=== PATIENT | male | born 1960 | race Caucasian/White ===

== ENCOUNTER 2017-02-27 16:54 | Emergency (ER) | payer OTHER ==
[~2017-02-27] VITALS: Ht 170.2 cm; Wt 87.0 kg
[2017-02-27 16:58] VITALS: TEMP 36.6; Ht 170.2 cm; Wt 87.0 kg
[2017-02-27] MEDS ORDERED: MoRPHine SULFATE 10 MG/ML CARP/VIAL IV STA ×2 (17:43→20:37)
--- NOTE | 2017-02-27 18:40 | DIAGNOSTIC IMAGING REPORT ---
LEFT TIBIA/FIBULA 2 VIEWS ROUTINE CLINICAL HISTORY: pain/swelling, crush injury, eval fx trauma. Pain. COMPARISON: None. DISCUSSION: Transverse fracture medial malleolus of the left ankle. Chronic cortical thickening of the mid tibial shaft. Possible small avulsion anterior tibial margin of the ankle. There is no evidence for soft tissue swelling. IMPRESSION: Fracture medial malleolus left ankle. Potential fracture anterior margin of the tibia at the anterior margin of the ankle. No additional acute bony abnormality of the lower leg. The above report was generated using voice recognition software. It may contain grammatical, syntax or spelling errors. Electronically signed by: Theodore Singleton M.D. 02/27/2017 6:39 PM Dictated Date/Time: 02/27/2017 6:35 PM
--- NOTE | 2017-02-27 18:44 | DIAGNOSTIC IMAGING REPORT ---
LEFT ANKLE MIN 3 VIEWS ROUTINE, LEFT FOOT MIN 3 VIEWS ROUTINE HISTORY: 56 years-old Male pain/swelling, crush injury, eval fx COMPARISON: None available TECHNIQUE: 3 views of the left foot and 3 views of the left ankle FINDINGS: Ankle: There is an acute complete fracture of the anterior aspect medial malleolus below the level of the talar dome which demonstrates approximately 3 mm of medial displacement and 3 mm of distal displacement. Moderate circumferential soft tissue swelling is present about the ankle with moderate joint effusion. There is also a suspected fracture involving the anterior calcaneus adjacent to the calcaneal cuboid articulation, best seen on the lateral projection. Peripheral vascular calcifications are noted. Foot: Moderate degenerative changes are seen within the first interphalangeal joint. Peripheral vascular calcifications are noted. There is a suspected fracture of the anterior calcaneus adjacent to the calcaneal cuboid articulation. Additionally, there is a bone fragment of the dorsal forefoot adjacent to the second tarsometatarsal joint with soft tissue swelling suggesting fracture. IMPRESSION: 1. Acute mildly displaced fracture of the medial malleolus with associated soft tissue swelling and moderate joint effusion. 2. Additional intra-articular fracture of the anterior calcaneus adjacent to the calcaneal cuboid articulation. 3. Bone fragment of the dorsal forefoot adjacent to the second tarsometatarsal joint seen only on the lateral view suggests an additional fracture with soft tissue swelling. 4. Peripheral vascular disease. The above report was generated using voice recognition software. It may contain grammatical, syntax or spelling errors. Electronically signed by: Gregory Nguyen M.D. 02/27/2017 6:43 PM Dictated Date/Time: 02/27/2017 6:38 PM
--- NOTE | 2017-02-27 20:03 | EMERGENCY ROOM VISIT NOTE ---
ED Visit Note First contact with patient: 17:02 CHIEF COMPLAINT: Ankle pain HISTORY OF PRESENT ILLNESS: This 56-year-old male patient presents to the emergency department after sustaining an injury to the left ankle and foot around 3 PM. Patient states he was cutting a tree and the trunk fell hitting him on the lateral leg and foot. There was no twisting or inversion motion. The patient complains of pain along the outside of the ankle. The patient complains of pain of the foot. The patient rates the pain as throbbing and 9/ 10. The patient is not able to bear weight on the foot. Constant pain, worse with movement, weight bearing, and the dependent position. No knee pain, the patient is able to move their toes. No numbness or weakness of the foot, no laceration, but abrasions to the lateral foot and ankle. The patient has not had a previous fracture to this ankle. The patient has taken no medications for the pain. The patient denies any other injury. Tetanus is up-to-date. REVIEW OF SYSTEMS: A 6 system review of systems was completed with positives and pertinent negatives listed in the HPI. ALLERGIES: See chart MEDICATIONS: See chart PMH: See chart SOCIAL HISTORY: See chart PHYSICAL EXAM: Vital Signs: Reviewed Nurse's notes, vital signs stable. GENERAL : Pleasant cooperative, no acute distress, but appears in pain, well-developed, well-nourished. MENTAL STATUS: Alert, oriented to person place and time, and cooperative. MUSCULOSKELETAL: The left ankle and foot are significantly swollen swollen and tender over the lateral malleolus, mild abrasions and ecchymosis along the lateral aspect, but no lacerations or punctures. There is lateral and medial ligamentous instability. There is fifth metatarsal tenderness. There is swelling and tenderness over the entire dorsum of the foot. There is no calf or tibia/fibular tenderness. There is no visual deformity. The foot and toes are warm and well-perfused. Dorsalis pedis pulse 2+. Sensation to pain and light touch is intact. Capillary refill less than 2 seconds. IMAGING: LEFT LOWER EXTREMITY WITHOUT HISTORY: 56 years-old Male further eval fxs of med mall, calcaneus, and foot. Acute left foot and ankle pain status post trauma. COMPARISON: Left foot and ankle radiograph the same day TECHNIQUE: Multiple axial CT images of the left lower extremity were obtained without the use of IV contrast. Coronal and sagittal reformatted images were obtained from the axial data set and submitted for review. A dose lowering technique was used consistent with the principals of NEHEMIAS. FINDINGS: Previously discussed osseous structure of the dorsal forefoot correlates with a 1.2 cm os intermetatarseum positioned between the first and second metatarsal bases. No forefoot fracture is identified. Midfoot alignment is anatomic. There is a small acute appearing comminuted intra-articular fracture of the inferior aspect of the anterior calcaneus adjacent to the plantar aspect of the cuboid. There is a subtle fracture of the dorsal aspect cuboid nicely seen on image 42 of the sagittal series as well as a subtle fracture of the dorsal third cuneiform. Moderate degenerative changes involving the first interphalangeal joint. There is an acute mildly displaced fracture involving the medial malleolus which is angulated approximately 38 degrees with is apex medial. This is displaced medially approximately 5 mm. There is a 9 x 6 x 4 loose body present along the anterolateral aspect of the tibial plafond with adjacent osteochondral defect. There is moderate soft tissue swelling about the ankle. No vascular calcifications are noted. There is thickening of the peroneus longus tendon suggesting tendinosis. The imaged extensor tendons appear intact. IMPRESSION: 1. Acute mildly displaced and angulated fracture of the medial malleolus redemonstrated. 2. Subtle comminuted intra-articular fracture of the anterior calcaneus adjacent to the cuboid. 3. Additional subtle fractures involve the dorsal cuboid and dorsal third cuneiform. 4. Previously discussed osseous structure of the dorsal forefoot correlates with a 1.2 cm os intermetatarseum positioned between the first and second metatarsal bases. 5. Osteochondral defect of the anterolateral tibial plafond with 9 mm loose body. EMERGENCY DEPARTMENT COURSE: I examined the patient. Exam concerning for fracture of the ankle and possibly foot. IV was started and patient was given morphine for pain control. X-rays of the left foot, ankle, tibia/fibula were reviewed by myself and read by radiology and reveal acute medial malleolus fracture, intra-articular calcaneus fracture, and possible metatarsal fracture. Given the extent of the injury, CT of the lower extremity was also obtained for further information. Ortho-Glass splint posterior and stirrup was applied to the ankle under my direction and the position was satisfactory. Neurovascular status was rechecked and intact. The patient was instructed on the use of crutches. Patient was provided Ulysses for pain management. The patient was instructed to follow closely with orthopedic surgery for further management. The patient was discharged home in good condition. Current/Historical Medications Scheduled PRN Hydrocodone/Acetaminophen 5MG/325MG (Ulysses 5MG/325MG), 1-2 TABLET PO Q6H PRN for Pain Miscellaneous Medications None (Patient States No Home Meds) Allergies Coded Allergies: No Known Allergies (Unverified , 08/25/11) Vital Signs Date Time Temp Pulse Resp B/P (MAP) Pulse Ox O2 Delivery O2 Flow Rate FiO2 02/27/17 20:50 62 18 142/75 98 Room Air 02/27/17 18:50 67 18 134/72 98 Room Air 02/27/17 16:58 36.6 67 18 106/72 98 Room Air Medications Administered Medications (Trade) Dose Ordered Sig/Sebastien Route Start Time Stop Time Status Last Admin Dose Admin Morphine Sulfate (MoRPHine SULFATE INJ) 6 mg NOW STAT IV 02/27/17 17:43 02/27/17 17:46 DC 02/27/17 18:08 6 MG Morphine Sulfate (MoRPHine SULFATE INJ) 6 mg NOW STAT IV 02/27/17 20:37 02/27/17 20:38 DC 02/27/17 20:37 6 MG Acetaminophen/ Hydrocodone Bitart (Ulysses 5/325mg Home Pack) 1 homepack UD ONCE PO 02/27/17 21:15 02/27/17 21:16 DC 02/27/17 21:20 1 HOMEPACK Departure Information Impression Primary Impression: Fracture of medial malleolus, left, closed Additional Impression: Calcaneus fracture, left Dispostion Home / Self-Care Condition GOOD Prescriptions Hydrocodone/Acetaminophen 5MG/325MG (Ulysses 5MG/325MG) Tab 1-2 TABLET PO Q6H Y for Pain for 3 Days, #24 TAB For Initial Treatment Prov: Vikki Cobos CRNP 02/27/17 Referrals No Doctor, Assigned (PCP) Lazaro Perdomo D.O. Patient Instructions Calcaneus Fx Repair, ED Fx Ankle General, [facility] Additional Instructions Ice and elevation for the next 2 days. Use the crutches at all times to avoid any weight bearing on your left leg. The splint is not to be removed until you are seen in follow up. Do not get the splint wet. Ulysses 1-2 tabs every 6 hours as needed for pain. This is a narcotic medication, do not drive, drink alcohol, or operate machinery while you are taking it. Follow up with orthopedics in the next few days. Call Dr. Perdomo's office for an appointment. Work Instructions Return To Work: after follow-up (with orthopedics) Additional Work Instructions: No weight bearing on the left leg, must use crutches at all times Problem Qualifiers Primary Impression: Fracture of medial malleolus, left, closed Encounter type: initial encounter Fracture alignment: displaced Qualified Codes: S82.52XA - Displaced fracture of medial malleolus of left tibia, initial encounter for closed fracture Additional Impression: Calcaneus fracture, left Encounter type: initial encounter Fracture type: closed Fracture morphology : intra-articular Fracture alignment: nondisplaced Qualified Codes: S92.065A - Nondisplaced intraarticular fracture of left calcaneus, initial encounter for closed fracture
--- NOTE | 2017-02-27 20:14 | DIAGNOSTIC IMAGING REPORT ---
LEFT LOWER EXTREMITY WITHOUT HISTORY: 56 years-old Male further eval fxs of med mall, calcaneus, and foot. Acute left foot and ankle pain status post trauma. COMPARISON: Left foot and ankle radiograph the same day TECHNIQUE: Multiple axial CT images of the left lower extremity were obtained without the use of IV contrast. Coronal and sagittal reformatted images were obtained from the axial data set and submitted for review. A dose lowering technique was used consistent with the principals of NEHEMIAS. FINDINGS: Previously discussed osseous structure of the dorsal forefoot correlates with a 1.2 cm os intermetatarseum positioned between the first and second metatarsal bases. No forefoot fracture is identified. Midfoot alignment is anatomic. There is a small acute appearing comminuted intra-articular fracture of the inferior aspect of the anterior calcaneus adjacent to the plantar aspect of the cuboid. There is a subtle fracture of the dorsal aspect cuboid nicely seen on image 42 of the sagittal series as well as a subtle fracture of the dorsal third cuneiform. Moderate degenerative changes involving the first interphalangeal joint. There is an acute mildly displaced fracture involving the medial malleolus which is angulated approximately 38 degrees with is apex medial. This is displaced medially approximately 5 mm. There is a 9 x 6 x 4 loose body present along the anterolateral aspect of the tibial plafond with adjacent osteochondral defect. There is moderate soft tissue swelling about the ankle. No vascular calcifications are noted. There is thickening of the peroneus longus tendon suggesting tendinosis. The imaged extensor tendons appear intact. IMPRESSION: 1. Acute mildly displaced and angulated fracture of the medial malleolus redemonstrated. 2. Subtle comminuted intra-articular fracture of the anterior calcaneus adjacent to the cuboid. 3. Additional subtle fractures involve the dorsal cuboid and dorsal third cuneiform. 4. Previously discussed osseous structure of the dorsal forefoot correlates with a 1.2 cm os intermetatarseum positioned between the first and second metatarsal bases. 5. Osteochondral defect of the anterolateral tibial plafond with 9 mm loose body. The above report was generated using voice recognition software. It may contain grammatical, syntax or spelling errors. Electronically signed by: Gregory Nguyen M.D. 02/27/2017 8:12 PM Dictated Date/Time: 02/27/2017 8:00 PM
[2017-02-27] MEDS ORDERED: MoRPHine SULFATE 4 MG/ML 1 ML CARP\\VIAL ONE (20:38)
[2017-02-27] MEDS ORDERED: MoRPHine SULFATE 2 MG/ML CARP ONE (20:38)
[2017-02-27 20:50] VITALS: BP 142/75; PULSE 62; O2SAT 98
[2017-02-27] MEDS ORDERED: HYDR-5688 PO (21:13)
[2017-02-27] MEDS ORDERED: NORCO 5/325MG HOME PACK PO ONE (21:15)
== END 2017-02-27 21:26 | disposition home or self-care (01) ==
LOC: C.EDB 16:56 → C.EDD 21:26
DX: S82.52XA Displaced fracture of medial malleolus of left tibia, initial encounter for closed fracture (principal); S92.065A Nondisplaced intraarticular fracture of left calcaneus, initial encounter for closed fracture; W20.8XXA Other cause of strike by thrown, projected or falling object, initial encounter

== ENCOUNTER → 2017-02-28 | Outpatient (CLI) | payer OTHER ==
[~2017-02-28] MED LIST: HYDR-5688 PO
== END | disposition home or self-care (01) ==
LOC: C.CPL 14:04
PROVIDERS: ATTEND Orthopaedic Surgery
DX: S82.52XA Displaced fracture of medial malleolus of left tibia, initial encounter for closed fracture (principal); X58.XXXA Exposure to other specified factors, initial encounter